=== PATIENT | female | born 2000 | race Caucasian/White ===

== ENCOUNTER 2018-09-04 07:00 | Inpatient (IN) | payer BC, MEDICAID ==
[2018-09-04] MEDS ORDERED: Sodium Chloride 0.9% 10 ML Syringe FLUSH PRN (07:18)
[2018-09-04] MEDS ORDERED: Nalbuphine 10 MG/1 ML Vial IVPUSH PRN (07:18)
[2018-09-04] MEDS ORDERED: Ondansetron 4 MG/2 ML SDV IVPUSH PRN (07:18)
[2018-09-04] MEDS ORDERED: Oxytocin/Lactated Ringers 10 UNIT/1,000 ML BAG IV SCH ×2 (07:30→15:15)
[2018-09-04] MEDS: Misoprostol 25 MCG (1/4 of 100 MCG) Tab VAG SCH ×4 (07:41→15:50)
--- NOTE | 2018-09-04 09:25 | PCM.LDHP ---
L&D History of Present Illness - General Date of Service: 09/04/18 Admit Problem/Dx: Patient Status Order with Admit Dx/Problem 09/04/18 07:18 Patient Status [ADT] Routine Admission Diagnosis/Problem Admission Diagnosis/Problem Source of Information: Patient History Limitations: Reports: No Limitations - History of Present Illness Introduction:: Patient is a 18 y/o at 40 4/7 wks who presents for IOL. Doing well today. No significant contractions. Good FM. No other concerns - Related Data Allergies/Adverse Reactions: Allergies Allergy/AdvReac Type Severity Reaction Status Date / Time No Known Allergies Allergy Verified 09/04/18 07:18 Home Medications: Home Meds Vit/FA/Fe Fumarate/Se [ MTR] 1 tab PO DAILY 01/12/18 [History] Past Medical History HEENT History: Reports: Impaired Vision Gastrointestinal History: Reports: GERD WEDGER History: Reports: : 1 Para: 0 Musculoskeletal History: Reports: Back Pain, Chronic Neurological History: Reports: Headaches, Chronic Psychiatric History: Reports: Anxiety, Depression - Past Surgical History GI Surgical History: Reports: Appendectomy Social & Family History - Family History Family Medical History: Noncontributory - Tobacco Use Smoking Status *Q: Never Smoker - Caffeine Use Caffeine Use: Reports: None - Alcohol Use Alcohol Use History: No - Recreational Drug Use Recreational Drug Use: No H&P Review of Systems - Review of Systems: Review Of Systems: See Below General: Reports: No Symptoms Pulmonary: Reports: No Symptoms Cardiovascular: Reports: No Symptoms Gastrointestinal: Reports: No Symptoms Genitourinary: Reports: No Symptoms Musculoskeletal: Reports: No Symptoms Psychiatric: Reports: No Symptoms Neurological: Reports: No Symptoms L&D Exam - Exam Exam: See Below - Vital Signs Vital Signs: Last Vital Signs Temp 37.4 C 09/04/18 07:16 Pulse 91 09/04/18 07:16 Resp 14 09/04/18 07:16 BP 125/79 09/04/18 07:16 Pulse Ox 96 09/04/18 07:16 Weight: 93.304 kg - OB Specific Contraction Intensity: Irritability Movement: Active Heart Tones: Present Heart Tones per Min: 130 Heart Rate (FHR) Variability: Moderate (6-25 bmp) Presentation: Vertex - Britton Score Britton Score Cervix Position: Midposition Britton Score Consistency: Soft Britton Score Effacement: 51-70% Britton Score Dilation: 1-2 cm Britton Score 's Station: -2 Britton Score Total: 7 - Exam General: Alert, Oriented, Cooperative Lungs: Clear to Auscultation, Normal Respiratory Effort Cardiovascular: Regular Rate, Regular Rhythm GI/Abdominal Exam: Soft, Non-Tender Genitourinary: Normal external exam Extremities: Normal Inspection Skin: Warm, Dry, Intact - Patient Data Lab Results Last 24 hrs: Laboratory Results - last 24 hr 09/04/18 Range/Units 07:34 WBC 8.68 (3.98-10.04) K/mm3 RBC 4.33 (3.98-5.22) M/mm3 Hgb 11.3 D (11.2-15.7) gm/L Hct 35.2 (34.1-44.9) % MCV 81.3 D (79.4-94.8) fl MCH 26.1 (25.6-32.2) pg MCHC 32.1 L (32.2-35.5) g/dl RDW Std Deviation 45.2 (36.4-46.3) fL Plt Count 223 (182-369) K/mm3 MPV 11.7 (9.4-12.3) fl Neut % (Auto) 71.4 H (34.0-71.1) % Lymph % (Auto) 20.0 (19.3-51.7) % Kane % (Auto) 7.0 (4.7-12.5) % Eos % (Auto) 1.4 (0.7-5.8) Baso % (Auto) 0.1 (0.1-1.2) % Neut # (Auto) 6.19 H (1.56-6.13) K/mm3 Lymph # (Auto) 1.74 (1.18-3.74) K/mm3 [place] # (Auto) 0.61 H (0.24-0.36) K/mm3 Eos # (Auto) 0.12 (0.04-0.36) K/mm3 Baso # (Auto) 0.01 (0.01-0.08) K/mm3 Result Diagrams: 09/04/18 07:34 - Problem List (1) Post-term , 40-42 weeks of gestation SNOMED Code(s): 95259907466230 ICD Code: O48.0 - POST-TERM Status: Acute Current Visit: Yes (2) Rubella non-immune status, antepartum SNOMED Code(s): 412613488 ICD Code: O99.89 - OTH DISEASES AND CONDITIONS COMPL PREG/CHLDBRTH; Z28.3 - UNDERIMMUNIZATION STATUS Status: Acute Current Visit: Yes Problem List Initiated/Reviewed/Updated: Yes Orders Last 24hrs: Active Orders 24 hr Category Date Time Status Patient Status [ADT] Routine ADT 09/04/18 07:18 Active Activity as Tolerated [RC] PFP Care 09/04/18 07:18 Active Communication Order [RC] ASDIRECTED Care 09/04/18 07:18 Active Heart Tones [RC] ASDIRECTED Care 09/04/18 07:18 Active Non Stress Test [RC] PER UNIT ROUTINE Care 09/04/18 07:18 Active Notify Provider [RC] PFP Care 09/04/18 07:18 Active Notify Provider [RC] PRN Care 09/04/18 07:18 Active Peripheral IV Care [RC] . DIRECTED Care 09/04/18 07:18 Active Vital Signs [RC] PER UNIT ROUTINE Care 09/04/18 07:18 Active Regular Diet [DIET] Diet 09/04/18 Breakfast Active RAPID PLASMA REAGIN,RPR [CHEM] Routine Lab 09/04/18 07:34 Received Lactated Ringers [Ringers, Lactated] 1,000 ml Med 09/04/18 07:30 Active IV ASDIRECTED Nalbuphine [Nubain] Med 09/04/18 07:18 Active 10 mg IVPUSH Q2H PRN Ondansetron [Zofran] Med 09/04/18 07:18 Active 4 mg IVPUSH Q4H PRN Oxytocin/Lactated Ringers [Pitocin in LR 10 Units/1,000 Med 09/04/18 07:30 Active ML] 10 unit in 1,000 ml IV .CONTINUOUS Sodium Chloride 0.9% [Saline Flush] Med 09/04/18 07:18 Active 10 ml FLUSH ASDIRECTED PRN miSOPROStol [Cytotec] Med 09/04/18 08:00 Active 25 mcg VAG Q4HR Electronic Heart Tones Ext w TOCO [WOMSER] Oth 06/28/19 07:18 Ordered Routine Electronic Heart Tones Internal [WOMSER] Per Unit Oth 09/04/18 07:18 Ordered Routine Peripheral IV Insertion Adult [OM.PC] Routine Oth 09/04/18 07:18 Ordered Resuscitation Status Routine Resus Stat 09/04/18 07:18 Ordered Medication Orders Lactated Ringer's (Ringers, Lactated) 1,000 mls @ 100 mls/hr IV ASDIRECTED RAMIRO Oxytocin/Lactated Ringer's (Pitocin In Lr 10 Units/1,000 Ml) 10 unit in 1,000 mls @ 500 mls/hr IV .CONTINUOUS RAMIRO Misoprostol (Cytotec) 25 mcg VAG Q4HR RAMIRO Stop: 09/04/18 17:01 Last Admin: 09/04/18 09:05 Dose: Not Given Admin: 09/04/18 07:41 Dose: 25 mcg Nalbuphine HCl (Nubain) 10 mg IVPUSH Q2H PRN PRN Reason: Pain Ondansetron HCl (Zofran) 4 mg IVPUSH Q4H PRN PRN Reason: Nausea/Vomiting Sodium Chloride (Saline Flush) 10 ml FLUSH ASDIRECTED PRN PRN Reason: Keep Vein Open Assessment/Plan Comment:: 18 y/o at 40 4/7 wks presents for IOL * Labs on admission * Cytotec and mcwilliams bulb for IOL * Pain management per patient preference * Anticipate * MMR prior to discharge
[2018-09-04] MEDS ORDERED: Bupivacaine/fentaNYL/NS 100 ML Bag EPIDUR PRN (12:33)
[2018-09-04] MEDS ORDERED: ePHEDrine 50 MG/ML SDV IVPUSH PRN (12:33)
[2018-09-04] MEDS ORDERED: diphenhydrAMINE 50 MG/ML SDV IVPUSH PRN (12:33)
[2018-09-04] MEDS ORDERED: fentaNYL 100 MCG/2 ML SDV EPIDUR PRN (12:33)
--- NOTE | 2018-09-04 12:33 | PCM.PREANE ---
Preanesthetic Assessment - Procedure Proposed Procedure: phil - Anesthesia/Transfusion/Family Hx Anesthesia History: Prior Anesthesia Without Reaction Family History of Anesthesia Reaction: No Transfusion History: No Prior Transfusion(s) - Review of Systems General: No Symptoms Pulmonary: No Symptoms Cardiovascular: No Symptoms Gastrointestinal: No Symptoms Neurological: No Symptoms Other: Reports: None - Physical Assessment O2 Sat by Pulse Oximetry: 96 Respiratory Rate: 14 Vital Signs: Last Vital Signs Temp 99.4 F 09/04/18 07:16 Pulse 91 09/04/18 07:16 Resp 14 09/04/18 07:16 BP 125/79 09/04/18 07:16 Pulse Ox 96 09/04/18 07:16 Height: 5 ft 5 in Weight: 93.304 kg ASA Class: 2 Mental Status: Alert & Oriented x3 Airway Class: Mallampati = 1 Dentition: Reports: Normal Dentition Thyro-Mental Finger Breadths: 3 Mouth Opening Finger Breadths: 3 ROM/Head Extension: Full Lungs: Clear to Auscultation, Normal Respiratory Effort Cardiovascular: Regular Rate, Regular Rhythm - Lab Values: Laboratory Last Values WBC 8.68 K/mm3 (3.98-10.04) 09/04/18 07:34 RBC 4.33 M/mm3 (3.98-5.22) 09/04/18 07:34 Hgb 11.3 gm/L (11.2-15.7) D 09/04/18 07:34 Hct 35.2 % (34.1-44.9) 09/04/18 07:34 MCV 81.3 fl (79.4-94.8) D 09/04/18 07:34 MCH 26.1 pg (25.6-32.2) 09/04/18 07:34 MCHC 32.1 g/dl (32.2-35.5) L 09/04/18 07:34 RDW Std Deviation 45.2 fL (36.4-46.3) 09/04/18 07:34 Plt Count 223 K/mm3 (182-369) 09/04/18 07:34 MPV 11.7 fl (9.4-12.3) 09/04/18 07:34 Neut % (Auto) 71.4 % (34.0-71.1) H 09/04/18 07:34 Lymph % (Auto) 20.0 % (19.3-51.7) 09/04/18 07:34 [place] % (Auto) 7.0 % (4.7-12.5) 09/04/18 07:34 Eos % (Auto) 1.4 (0.7-5.8) 09/04/18 07:34 Baso % (Auto) 0.1 % (0.1-1.2) 09/04/18 07:34 Neut # (Auto) 6.19 K/mm3 (1.56-6.13) H 09/04/18 07:34 Lymph # (Auto) 1.74 K/mm3 (1.18-3.74) 09/04/18 07:34 [place] # (Auto) 0.61 K/mm3 (0.24-0.36) H 09/04/18 07:34 Eos # (Auto) 0.12 K/mm3 (0.04-0.36) 09/04/18 07:34 Baso # (Auto) 0.01 K/mm3 (0.01-0.08) 09/04/18 07:34 RPR Non-reactive (NONREACTIVE) 09/04/18 07:34 - Allergies Allergies/Adverse Reactions: Allergies Allergy/AdvReac Type Severity Reaction Status Date / Time No Known Allergies Allergy Verified 09/04/18 07:18 - Blood Blood Available: No - Acknowledgements Anesthesia Type Planned: Epidural Pt an Appropriate Candidate for the Planned Anesthesia: Yes Alternatives and Risks of Anesthesia Discussed w Pt/Guardian: Yes Pt/Guardian Understands and Agrees with Anesthesia Plan: Yes PreAnesthesia Questionnaire HEENT History: Reports: Impaired Vision Other HEENT History: wears glasses Cardiovascular History: Reports: Heart Murmur Respiratory History: Reports: None Gastrointestinal History: Reports: GERD [employer]IMARY [employer] TE[employer]ER History: Reports: : 1 (40 weeks 4) Para: 0 - Past Surgical History GI Surgical History: Reports: Appendectomy - SUBSTANCE USE Smoking Status *Q: Never Smoker Tobacco Use Within Last Twelve Months: No Second Hand Smoke Exposure: No Days Per Week of Alcohol Use: 0 Recreational Drug Use History: No - HOME MEDS Home Medications: Home Meds Vit/FA/Fe Fumarate/Se [ MTR] 1 tab PO DAILY 01/12/18 [History] - CURRENT (IN HOUSE) MEDS Current Meds: Current Medications Lactated Ringer's (Ringers, Lactated) 1,000 mls @ 100 mls/hr IV ASDIRECTED RAMIRO Oxytocin/Lactated Ringer's (Pitocin In Lr 10 Units/1,000 Ml) 10 unit in 1,000 mls @ 500 mls/hr IV .CONTINUOUS [facility] Misoprostol (Cytotec) 25 mcg VAG Q4HR RAMIRO Stop: 09/04/18 17:01 Last Admin: 09/04/18 11:49 Dose: 25 mcg Nalbuphine HCl (Nubain) 10 mg IVPUSH Q2H PRN PRN Reason: Pain Ondansetron HCl (Zofran) 4 mg IVPUSH Q4H PRN PRN Reason: Nausea/Vomiting Sodium Chloride (Saline Flush) 10 ml FLUSH ASDIRECTED PRN PRN Reason: Keep Vein Open
--- NOTE | 2018-09-04 15:14 | PCM.PNLD ---
Labor Progress Note - VS & Meds Vital Signs: Last Vital Signs Temp 37.4 C 09/04/18 07:16 Pulse 91 09/04/18 07:16 Resp 14 09/04/18 12:33 BP 125/79 09/04/18 07:16 Pulse Ox 96 09/04/18 12:33 Active Medications: Current Medications Diphenhydramine HCl (Benadryl) 25 mg IVPUSH Q6H PRN PRN Reason: pruritis Ephedrine Sulfate (Ephedrine Sulfate) 5 mg IVPUSH ASDIRECTED PRN PRN Reason: Hypotension Fentanyl (Sublimaze) 100 mcg EPIDUR Q3H PRN PRN Reason: Pain Fentanyl/Bupivacaine HCl (Fentanyl/Bupivacaine/Ns 2 Mcg-0.125% 100 Ml) 100 ml EPIDUR ASDIRECTED PRN PRN Reason: Pain Lactated Ringer's (Ringers, Lactated) 1,000 mls @ 100 mls/hr IV ASDIRECTED RAMIRO Oxytocin/Lactated Ringer's (Pitocin In Lr 10 Units/1,000 Ml) 10 unit in 1,000 mls @ 500 mls/hr IV .CONTINUOUS RAMIRO Oxytocin/Lactated Ringer's (Pitocin In Lr 10 Units/1,000 Ml) 10 unit in 1,000 mls @ 12 mls/hr IV TITRATE RAMIRO; Protocol Nalbuphine HCl (Nubain) 10 mg IVPUSH Q2H PRN PRN Reason: Pain Ondansetron HCl (Zofran) 4 mg IVPUSH Q4H PRN PRN Reason: Nausea/Vomiting Sodium Chloride (Saline Flush) 10 ml FLUSH ASDIRECTED PRN PRN Reason: Keep Vein Open Discontinued Medications Misoprostol (Cytotec) 25 mcg VAG Q4HR RAMIRO Stop: 09/04/18 17:01 Last Admin: 09/04/18 11:49 Dose: 25 mcg - Uterine Contractions Uterine Monitoring Mode: External [place] Contraction Intensity: Mild Uterine Resting Tone: Soft - Monitoring Monitor Mode: External Ultrasound Heart Rate (FHR) Baseline: 135 Heart Rate (FHR) Variability: Moderate (6-25 bmp) Accelerations: Present, 15x15 Decelerations: None Strip Review: Category I - Vaginal Exam Dilation (cm): 3 Effacement (Percent): 50 Station: -2 Cervical Position: Midposition - Labor Progress (Free Text) Labor Progress: Doing well. Salguero bulb out. Will start pitocin
[2018-09-04] MEDS: Lactated Ringers 1,000 ML IV SCH ×3 (15:48→22:31)
--- NOTE | 2018-09-04 20:22 | PCM.PNLD ---
Labor Progress Note - VS & Meds Vital Signs: Last Vital Signs Temp 37.4 C 09/04/18 07:16 Pulse 91 09/04/18 07:16 Resp 14 09/04/18 12:33 BP 125/79 09/04/18 07:16 Pulse Ox 96 09/04/18 12:33 Active Medications: Current Medications Diphenhydramine HCl (Benadryl) 25 mg IVPUSH Q6H PRN PRN Reason: pruritis Ephedrine Sulfate (Ephedrine Sulfate) 5 mg IVPUSH ASDIRECTED PRN PRN Reason: Hypotension Fentanyl (Sublimaze) 100 mcg EPIDUR Q3H PRN PRN Reason: Pain Fentanyl/Bupivacaine HCl (Fentanyl/Bupivacaine/Ns 2 Mcg-0.125% 100 Ml) 100 ml EPIDUR ASDIRECTED PRN PRN Reason: Pain Lactated Ringer's (Ringers, Lactated) 1,000 mls @ 100 mls/hr IV ASDIRECTED RAMIRO Last Admin: 09/04/18 15:48 Dose: 100 mls/hr Oxytocin/Lactated Ringer's (Pitocin In Lr 10 Units/1,000 Ml) 10 unit in 1,000 mls @ 500 mls/hr IV .CONTINUOUS RAMIRO Oxytocin/Lactated Ringer's (Pitocin In Lr 10 Units/1,000 Ml) 10 unit in 1,000 mls @ 12 mls/hr IV TITRATE RAMIRO; Protocol Last Titration: 09/04/18 17:32 Dose: 6 munits/min, 36 mls/hr Nalbuphine HCl (Nubain) 10 mg IVPUSH Q2H PRN PRN Reason: Pain Ondansetron HCl (Zofran) 4 mg IVPUSH Q4H PRN PRN Reason: Nausea/Vomiting Sodium Chloride (Saline Flush) 10 ml FLUSH ASDIRECTED PRN PRN Reason: Keep Vein Open Discontinued Medications Misoprostol (Cytotec) 25 mcg VAG Q4HR RAMIRO Stop: 09/04/18 17:01 Last Admin: 09/04/18 15:50 Dose: Not Given - Uterine Contractions Uterine Monitoring Mode: External [place] Contraction Intensity: Mild Uterine Resting Tone: Soft - Monitoring Monitor Mode: External Ultrasound Heart Rate (FHR) Baseline: 140 Heart Rate (FHR) Variability: Moderate (6-25 bmp) Accelerations: Present, 15x15 Decelerations: None Strip Review: Category I - Vaginal Exam Dilation (cm): 3 Effacement (Percent): 50 Station: -2 Cervical Position: Midposition - Labor Progress (Free Text) Labor Progress: Cervix similar to when first started pitocin 4 hours ago. Only on 6. AROM performed with release of scant amount of clear fluid. Continue present management
[2018-09-04] MEDS ORDERED: Calcium Carbonate 500 MG Tab.Chew PO PRN (21:37)
--- NOTE | 2018-09-04 22:52 | PCM.POSTAN ---
POST ANESTHESIA ASSESSMENT - MENTAL STATUS Mental Status: Alert - RESPIRATORY Respiratory Status: Respiratory Rate WNL, Airway Patent - CARDIOVASCULAR CV Status: Pulse Rate WNL, Blood Pressure Stable - GASTROINTESTINAL GI Status: No Symptoms - POST OP HYDRATION Hydration Status: Adequate & Stable
[2018-09-05] MEDS: Lactated Ringers 1,000 ML IV SCH (04:16)
--- NOTE | 2018-09-05 07:19 | PCM.DEL ---
L & D Note - General Info Date of Service: 09/05/18 - Delivery Note Labor: Induced by ARM, Induced by Oxytocin Cervical Ripening Method: Balloon Device, Misoprostil Delivery Outcome: Livebirth Infant Delivery Method: Spontaneous Vaginal Delivery-Single Delivery Mode: Spontaneous Presentation: Left Occiput Anterior (ABDI) Nuchal Cord: None Anesthesia Type: Epidural Amniotic Fluid Description: Clear Episiotomy Type: Right Mediolateral Suture type: Vicryl Suture size: 2-0 Placenta: Intact, Spontaneous Cord: 3 Vessels Estimated Blood Loss: 200 [place]: Bulb Syringe, Stimulated, Warmed, [place] Used, Warmer Used Delivery Comments (Free Text/Narrative):: Patient found to be complete and began pushing. Patient with extreme discomfort /anxiety with pushing. Had an extended period. Did offer a small episiotomy and she did accept this. Immediately after head delivered from an TEN presentation. With gentle downward traction the shoulders did not deliver. Patient put in deeper McRobert's, but delivery still did not occur. Suprapubic pressure and McRobert's applied again and after about 30 seconds anterior shoulder did deliver. Infant placed on maternal abdomen and cord clamped and cut. Baby taken quickly to warmer for assessment. Placenta allowed time to separate and expelled intact. Inspection of the perineum showed small right mediolateral episiotomy without extension. This was repaired with a 2-0 vicryl in the typical fashion - General Info Date of Service: 09/05/18 - Patient Data Vitals - Most Recent: Last Vital Signs Temp 37.4 C 09/04/18 07:16 Pulse 91 09/04/18 07:16 Resp 14 09/04/18 12:33 BP 125/79 09/04/18 07:16 Pulse Ox 96 09/04/18 12:33 Weight - Most Recent: 93.304 kg I&O - Last 24 Hours: Intake & Output 09/04/18 09/05/18 09/05/18 22:59 06:59 14:59 Intake Total 2700 1000 Balance 2700 1000 Lab Results Last 24 Hours: Laboratory Results - last 24 hr 09/04/18 09/04/18 Range/Units 07:34 07:34 WBC 8.68 (3.98-10.04) K/mm3 RBC 4.33 (3.98-5.22) M/mm3 Hgb 11.3 D (11.2-15.7) gm/L Hct 35.2 (34.1-44.9) % MCV 81.3 D (79.4-94.8) fl MCH 26.1 (25.6-32.2) pg MCHC 32.1 L (32.2-35.5) g/dl RDW Std Deviation 45.2 (36.4-46.3) fL Plt Count 223 (182-369) K/mm3 MPV 11.7 (9.4-12.3) fl Neut % (Auto) 71.4 H (34.0-71.1) % Lymph % (Auto) 20.0 (19.3-51.7) % [place] % (Auto) 7.0 (4.7-12.5) % Eos % (Auto) 1.4 (0.7-5.8) Baso % (Auto) 0.1 (0.1-1.2) % Neut # (Auto) 6.19 H (1.56-6.13) K/mm3 Lymph # (Auto) 1.74 (1.18-3.74) K/mm3 [place] # (Auto) 0.61 H (0.24-0.36) K/mm3 Eos # (Auto) 0.12 (0.04-0.36) K/mm3 Baso # (Auto) 0.01 (0.01-0.08) K/mm3 RPR Non-reactive (NONREACTIVE) Med Orders - Current: Current Medications Calcium Carbonate/Glycine (Tums) 1,000 mg PO Q2H PRN PRN Reason: Indigestion Last Admin: 09/04/18 21:47 Dose: 1,000 mg Diphenhydramine HCl (Benadryl) 25 mg IVPUSH Q6H PRN PRN Reason: pruritis Last Admin: 09/05/18 00:16 Dose: 25 mg Ephedrine Sulfate (Ephedrine Sulfate) 5 mg IVPUSH ASDIRECTED PRN PRN Reason: Hypotension Fentanyl (Sublimaze) 100 mcg EPIDUR Q3H PRN PRN Reason: Pain Fentanyl/Bupivacaine HCl (Fentanyl/Bupivacaine/Ns 2 Mcg-0.125% 100 Ml) 100 ml EPIDUR ASDIRECTED PRN PRN Reason: Pain Last Admin: 09/05/18 04:44 Dose: 100 ml Lactated Ringer's (Ringers, Lactated) 1,000 mls @ 100 mls/hr IV ASDIRECTED RAMIRO Last Admin: 09/05/18 04:16 Dose: 100 mls/hr Oxytocin/Lactated Ringer's (Pitocin In Lr 10 Units/1,000 Ml) 10 unit in 1,000 mls @ 500 mls/hr IV .CONTINUOUS RAMIRO Oxytocin/Lactated Ringer's (Pitocin In Lr 10 Units/1,000 Ml) 10 unit in 1,000 mls @ 12 mls/hr IV TITRATE RAMIRO; Protocol Last Titration: 09/05/18 05:32 Dose: 4 munits/min, 24 mls/hr Nalbuphine HCl (Nubain) 10 mg IVPUSH Q2H PRN PRN Reason: Pain Ondansetron HCl (Zofran) 4 mg IVPUSH Q4H PRN PRN Reason: Nausea/Vomiting Sodium Chloride (Saline Flush) 10 ml FLUSH ASDIRECTED PRN PRN Reason: Keep Vein Open Discontinued Medications Misoprostol (Cytotec) 25 mcg VAG Q4HR RAMIRO Stop: 09/04/18 17:01 Last Admin: 09/04/18 15:50 Dose: Not Given - Problem List & Annotations (1) Post-term , 40-42 weeks of gestation SNOMED Code(s): 56953550301635 Code(s): O48.0 - POST-TERM Status: Acute Current Visit: Yes (2) Rubella non-immune status, antepartum SNOMED Code(s): 624960623 Code(s): O99.89 - OTH DISEASES AND CONDITIONS COMPL PREG/CHLDBRTH; Z28.3 - UNDERIMMUNIZATION STATUS Status: Acute Current Visit: Yes (3) Shoulder dystocia, delivered, current hospitalization SNOMED Code(s): 230565001, 142035662 Code(s): O66.0 - OBSTRUCTED LABOR DUE TO SHOULDER DYSTOCIA Status: Acute Current Visit: Yes - Problem List Review Problem List Initiated/Reviewed/Updated: Yes - My Orders Last 24 Hours: My Active Orders 09/04/18 07:18 Patient Status [ADT] Routine Activity as Tolerated [RC] PFP Communication Order [RC] ASDIRECTED Heart Tones [RC] ASDIRECTED Notify Provider [RC] PFP Notify Provider [RC] PRN Peripheral IV Care [RC] . DIRECTED Vital Signs [RC] 09,15,21,03 Nalbuphine [Nubain] 10 mg IVPUSH Q2H PRN Ondansetron [Zofran] 4 mg IVPUSH Q4H PRN Sodium Chloride 0.9% [Saline Flush] 10 ml FLUSH ASDIRECTED PRN Electronic Heart Tones Ext w TOCO [WOMSER] Routine Electronic Heart Tones Internal [WOMSER] Per Unit Routine Peripheral IV Insertion Adult [OM.PC] Routine Resuscitation Status Routine 09/04/18 07:30 Lactated Ringers [Ringers, Lactated] 1,000 ml IV ASDIRECTED Oxytocin/Lactated Ringers [Pitocin in LR 10 Units/1,000 ML] 10 unit in 1,000 ml IV .CONTINUOUS 09/04/18 15:15 Oxytocin/Lactated Ringers [Pitocin in LR 10 Units/1,000 ML] 10 unit in 1,000 ml IV TITRATE 09/04/18 21:37 Calcium Carbonate [Tums] 1,000 mg PO Q2H PRN 09/04/18 Breakfast Regular Diet [DIET] 09/05/18 07:09 Patient Status Manage Transfer [TRANSFER] Routine - Assessment Assessment:: 18 y/o G1 now P1001 PPD#0 from at 40 5/7 wks - Plan Plan:: * Routine cares * Encourage breast feeding * Discharge home in 1-2 days * MMR prior to discharge
--- NOTE | 2018-09-05 07:39 | PCM48HPAN ---
Post Anesthesia Note - EVALUATION WITHIN 48HRS OF ANESTHETIC Vital Signs in Normal Range: Yes Patient Participated in Evaluation: Yes Respiratory Function Stable: Yes Airway Patent: Yes Cardiovascular Function Stable: Yes Hydration Status Stable: Yes Pain Control Satisfactory: Yes Nausea and Vomiting Control Satisfactory: Yes Mental Status Recovered: Yes Resp Rate: 14
[2018-09-05] MEDS ORDERED: Acetaminophen 325 MG Tab PO PRN (09:25)
[2018-09-05] MEDS ORDERED: Benzocaine/Menthol 20%-0.5% Spray 56 GM Canister TOP PRN (09:25)
[2018-09-05] MEDS ORDERED: Lanolin 100% Cream 7 GM Tube TOP PRN (09:25)
[2018-09-05] MEDS ORDERED: Witch Hazel Medicated Pads 40/Jar TOP PRN (09:25)
[2018-09-05] MEDS ORDERED: Docusate Sodium 100 MG Cap PO PRN (09:25)
[2018-09-05] MEDS: Ibuprofen 600 MG Tab PO PRN (20:20)
[2018-09-06] MEDS ORDERED: Bupivacaine 0.25% 10 ML SDV ONE
[2018-09-06] MEDS: Ibuprofen 600 MG Tab PO PRN (08:03)
[2018-09-06] MEDS ORDERED: Measles, Mumps & Rubella Vaccine 0.5 ML SDV SUBCUT ONE (09:44)
--- NOTE | 2018-09-06 09:44 | PCM.PNPP ---
- General Info Date of Service: 09/06/18 Functional Status: Reports: Pain Controlled, Tolerating Diet, Ambulating, Urinating - Review of Systems General: Reports: No Symptoms Pulmonary: Reports: No Symptoms Cardiovascular: Reports: No Symptoms Gastrointestinal: Reports: No Symptoms Genitourinary: Reports: No Symptoms Musculoskeletal: Reports: No Symptoms - Patient Data Vital Signs - Most Recent: Last Vital Signs Temp 37.1 C 09/06/18 09:00 Pulse 87 09/06/18 09:00 Resp 16 09/06/18 09:00 BP 117/72 09/06/18 09:00 Pulse Ox 100 09/06/18 09:00 Weight - Most Recent: 93.304 kg I&O - Last 24 Hours: Intake & Output 09/05/18 09/06/18 09/06/18 22:59 06:59 14:59 Intake Total 600 Balance 600 Med Orders - Current: Current Medications Acetaminophen (Tylenol) 650 mg PO Q4H PRN PRN Reason: mild pain or fever Benzocaine/Menthol (Dermoplast Pain Relief [place]) 0 gm TOP ASDIRECTED PRN PRN Reason: Perineal Comfort Measure Last Admin: 09/05/18 09:44 Dose: 1 can Docusate Sodium (Colace) 100 mg PO BID PRN PRN Reason: Constipation Emollient Ointment (Lansinoh Hpa) 0 gm TOP ASDIRECTED PRN PRN Reason: Sore Nipples Ibuprofen (Motrin) 600 mg PO Q6H PRN PRN Reason: Mild pain or fever Last Admin: 09/06/18 08:03 Dose: 600 mg Witch Shira (Tucks) 1 pad TOP ASDIRECTED PRN PRN Reason: Perineal Comfort Measure Last Admin: 09/05/18 09:44 Dose: 1 tub Discontinued Medications Calcium Carbonate/Glycine (Tums) 1,000 mg PO Q2H PRN PRN Reason: Indigestion Last Admin: 09/04/18 21:47 Dose: 1,000 mg Diphenhydramine HCl (Benadryl) 25 mg IVPUSH Q6H PRN PRN Reason: pruritis Last Admin: 09/05/18 00:16 Dose: 25 mg Ephedrine Sulfate (Ephedrine Sulfate) 5 mg IVPUSH ASDIRECTED PRN PRN Reason: Hypotension Fentanyl (Sublimaze) 100 mcg EPIDUR Q3H PRN PRN Reason: Pain Last Admin: 09/04/18 22:12 Dose: 100 mcg Fentanyl/Bupivacaine HCl (Fentanyl/Bupivacaine/Ns 2 Mcg-0.125% 100 Ml) 100 ml EPIDUR ASDIRECTED PRN PRN Reason: Pain Last Admin: 09/05/18 04:44 Dose: 100 ml Lactated Ringer's (Ringers, Lactated) 1,000 mls @ 100 mls/hr IV ASDIRECTED RAMIRO Last Admin: 09/05/18 04:16 Dose: 100 mls/hr Oxytocin/Lactated Ringer's (Pitocin In Lr 10 Units/1,000 Ml) 10 unit in 1,000 mls @ 500 mls/hr IV .CONTINUOUS RAMIRO Oxytocin/Lactated Ringer's (Pitocin In Lr 10 Units/1,000 Ml) 10 unit in 1,000 mls @ 12 mls/hr IV TITRATE RAMIRO; Protocol Last Titration: 09/05/18 05:32 Dose: 4 munits/min, 24 mls/hr Misoprostol (Cytotec) 25 mcg VAG Q4HR RAMIRO Stop: 09/04/18 17:01 Last Admin: 09/04/18 15:50 Dose: Not Given Nalbuphine HCl (Nubain) 10 mg IVPUSH Q2H PRN PRN Reason: Pain Ondansetron HCl (Zofran) 4 mg IVPUSH Q4H PRN PRN Reason: Nausea/Vomiting Sodium Chloride (Saline Flush) 10 ml FLUSH ASDIRECTED PRN PRN Reason: Keep Vein Open - Infant Interaction Infant Disposition, : in Room with Family Interaction: Holding Infant Feeding: Breastfed Infant; Nursed Well Support Person: Significant Other - Recovery Exam Fundal Tone: Firm Fundal Level: 1 Fingerbreadths Below Umbilicus Fundal Placement: Midline Lochia Amount: Small Lochia Color: Rubra/Red Perineum Description: Edematous, Other (see below) Other Perinuem Description: epis with repair Episiotomy/Laceration: Approximated Bladder Status: Voiding Urinary Elimination: Voided - Exam General: Alert, Oriented, Cooperative GI/Abdominal Exam: Soft, Non-Tender Extremities: Normal Inspection Skin: Warm, Dry, Intact - Problem List & Annotations (1) Post-term , 40-42 weeks of gestation SNOMED Code(s): 19331407043563 Code(s): O48.0 - POST-TERM Status: Acute Current Visit: Yes (2) Rubella non-immune status, antepartum SNOMED Code(s): 828609106 Code(s): O99.89 - OTH DISEASES AND CONDITIONS COMPL PREG/CHLDBRTH; Z28.3 - UNDERIMMUNIZATION STATUS Status: Acute Current Visit: Yes (3) Shoulder dystocia, delivered, current hospitalization SNOMED Code(s): 345769269, 534032717 Code(s): O66.0 - OBSTRUCTED LABOR DUE TO SHOULDER DYSTOCIA Status: Acute Current Visit: Yes - Problem List Review Problem List Initiated/Reviewed/Updated: Yes - My Orders Last 24 Hours: My Active Orders 09/05/18 09:25 Activity as Tolerated [RC] PER UNIT ROUTINE Vital Signs [RC] 09,15,21,03 Acetaminophen [Tylenol] 650 mg PO Q4H PRN Benzocaine/Menthol [Dermoplast Pain Relief [place]] See Dose Instructions TOP ASDIRECTED PRN Docusate Sodium [Colace] 100 mg PO BID PRN Ibuprofen [Motrin] 600 mg PO Q6H PRN Lanolin [Lansinoh HPA] See Dose Instructions TOP ASDIRECTED PRN Witch Shira [Tucks] 1 pad TOP ASDIRECTED PRN Assess Lochia [WOMSER] Per Unit Routine Assess Uterine Involution [WOMSER] Per Unit Routine Breast Pump [WOMSER] Per Unit Routine Heat Therapy [OM.PC] PRN Ice Therapy [OM.PC] Per Unit Routine Perineal Care [OM.PC] Per Unit Routine Peripheral IV Discontinue [OM.PC] Routine Sitz Bath [OM.PC] Per Unit Routine 09/06/18 09:25 Heat Therapy [OM.PC] PRN 09/06/18 09:38 Ready for Discharge [RC] PER UNIT ROUTINE - Assessment Assessment:: 18 y/o G1 now P1001 PPD#1 from at 40 5/7 wks - Plan Plan:: * Routine cares * Encourage breast feeding * Discharge home today * MMR prior to discharge
--- NOTE | 2018-09-06 09:52 | PCM.DCSUM1 ---
Discharge Summary - Discharge Data Discharge Date: 09/06/18 Discharge Disposition: Home, Self-Care 01 Condition: Good - Discharge Diagnosis/Problem(s) (1) Post-term , 40-42 weeks of gestation SNOMED Code(s): 17636194516366 ICD Code: O48.0 - POST-TERM Status: Acute Current Visit: Yes (2) Rubella non-immune status, antepartum SNOMED Code(s): 555866488 ICD Code: O99.89 - OTH DISEASES AND CONDITIONS COMPL PREG/CHLDBRTH; Z28.3 - UNDERIMMUNIZATION STATUS Status: Acute Current Visit: Yes (3) Shoulder dystocia, delivered, current hospitalization SNOMED Code(s): 027620647, 152477159 ICD Code: O66.0 - OBSTRUCTED LABOR DUE TO SHOULDER DYSTOCIA Status: Acute Current Visit: Yes - Patient Summary/Data Complications: None Consults: None Recommended Follow-up Testing/Procedures: Follow up in 3 weeks for check Hospital Course: 18 y/o at 40 4/7 wks who presented for IOL. This was done with a mcwilliams bulb and cytotec. She then underwent AROM and pitocin augmentation. She progressed well to complete dilation and underwent an uncomplicated . See delivery note for full details. she did well and was discharged home on PPD#1 - Patient Instructions Diet: Regular Diet as Tolerated Activity: As Tolerated Activity, Other: Pelvic rest for 6 weeks Driving: May Drive Today Showering/Bathing: May Shower Showering/Bathing, Other: May Bathe Notify Provider of: Fever, Increased Pain, Swelling and Redness, Drainage, Nausea and/or Vomiting - Discharge Plan *PRESCRIPTION DRUG MONITORING PROGRAM REVIEWED*: Not Applicable *COPY OF PRESCRIPTION DRUG MONITORING REPORT IN PATIENT [place]: Not Applicable Home Medications: Home Meds Vit/FA/Fe Fumarate/Se [ MTR] 1 tab PO DAILY 01/12/18 [History] Docusate Sodium [Colace] 100 mg PO BID PRN cap 09/06/18 [Rx] Ibuprofen [Motrin] 600 mg PO Q6H PRN tablet 09/06/18 [Rx] Referrals: Gracie Park MD [Primary Care Provider] - (3 weeks for check ) - Discharge Summary/Plan Comment DC Time >30 min.: No - Patient Data Vitals - Most Recent: Last Vital Signs Temp 37.1 C 09/06/18 09:00 Pulse 87 09/06/18 09:00 Resp 16 09/06/18 09:00 BP 117/72 09/06/18 09:00 Pulse Ox 100 09/06/18 09:00 Weight - Most Recent: 93.304 kg I&O - Last 24 hours: Intake & Output 09/05/18 09/06/18 09/06/18 22:59 06:59 14:59 Intake Total 600 Balance 600 Med Orders - Current: Current Medications Acetaminophen (Tylenol) 650 mg PO Q4H PRN PRN Reason: mild pain or fever Benzocaine/Menthol (Dermoplast Pain Relief [place]) 0 gm TOP ASDIRECTED PRN PRN Reason: Perineal Comfort Measure Last Admin: 09/05/18 09:44 Dose: 1 can Docusate Sodium (Colace) 100 mg PO BID PRN PRN Reason: Constipation Emollient Ointment (Lansinoh Hpa) 0 gm TOP ASDIRECTED PRN PRN Reason: Sore Nipples Ibuprofen (Motrin) 600 mg PO Q6H PRN PRN Reason: Mild pain or fever Last Admin: 09/06/18 08:03 Dose: 600 mg Witch Shira (Tucks) 1 pad TOP ASDIRECTED PRN PRN Reason: Perineal Comfort Measure Last Admin: 09/05/18 09:44 Dose: 1 tub Discontinued Medications Calcium Carbonate/Glycine (Tums) 1,000 mg PO Q2H PRN PRN Reason: Indigestion Last Admin: 09/04/18 21:47 Dose: 1,000 mg Diphenhydramine HCl (Benadryl) 25 mg IVPUSH Q6H PRN PRN Reason: pruritis Last Admin: 09/05/18 00:16 Dose: 25 mg Ephedrine Sulfate (Ephedrine Sulfate) 5 mg IVPUSH ASDIRECTED PRN PRN Reason: Hypotension Fentanyl (Sublimaze) 100 mcg EPIDUR Q3H PRN PRN Reason: Pain Last Admin: 09/04/18 22:12 Dose: 100 mcg Fentanyl/Bupivacaine HCl (Fentanyl/Bupivacaine/Ns 2 Mcg-0.125% 100 Ml) 100 ml EPIDUR ASDIRECTED PRN PRN Reason: Pain Last Admin: 09/05/18 04:44 Dose: 100 ml Lactated Ringer's (Ringers, Lactated) 1,000 mls @ 100 mls/hr IV ASDIRECTED [facility] Last Admin: 09/05/18 04:16 Dose: 100 mls/hr Oxytocin/Lactated Ringer's (Pitocin In Lr 10 Units/1,000 Ml) 10 unit in 1,000 mls @ 500 mls/hr IV .CONTINUOUS RAMIRO Oxytocin/Lactated Ringer's (Pitocin In Lr 10 Units/1,000 Ml) 10 unit in 1,000 mls @ 12 mls/hr IV TITRATE RAMIRO; Protocol Last Titration: 09/05/18 05:32 Dose: 4 munits/min, 24 mls/hr Misoprostol (Cytotec) 25 mcg VAG Q4HR [facility] Stop: 09/04/18 17:01 Last Admin: 09/04/18 15:50 Dose: Not Given Nalbuphine HCl (Nubain) 10 mg IVPUSH Q2H PRN PRN Reason: Pain Ondansetron HCl (Zofran) 4 mg IVPUSH Q4H PRN PRN Reason: Nausea/Vomiting Sodium Chloride (Saline Flush) 10 ml FLUSH ASDIRECTED PRN PRN Reason: Keep Vein Open
--- NOTE | 2018-09-06 12:17 | PCM48HPAN ---
Post Anesthesia Note - EVALUATION WITHIN 48HRS OF ANESTHETIC Vital Signs in Normal Range: Yes Patient Participated in Evaluation: Yes Respiratory Function Stable: Yes Airway Patent: Yes Cardiovascular Function Stable: Yes Hydration Status Stable: Yes Pain Control Satisfactory: Yes Nausea and Vomiting Control Satisfactory: Yes Mental Status Recovered: Yes Pulse Rate: 95 Resp Rate: 16 Temperature: 37.4 C Blood Pressure: 115/71
== END 2018-09-06 13:23 | disposition home or self-care (01) | DRG 560 ==
LOC: JD.OB 07:00 → JD.OBCHECK 07:00 → JD.OB 07:01 → JD.OBCHECK 07:01 → JD.OB 07:01 → JD.OBCHECK 07:18 → JD.OB 07:18 → UNDOADMOB 07:18 → OBSVTOIN 09-05 06:44 → JD.OB 09-05 06:45
PROVIDERS: ADMIT Obstetrics & Gynecology; ATTEND Obstetrics & Gynecology
PROC: 10E0XZZ Delivery of Products of Conception, External Approach (ICD-10-PCS; principal; 2018-09-05)
PROC: 10907ZC Drainage of Amniotic Fluid, Therapeutic from Products of Conception, Via Natural or Artificial Opening (ICD-10-PCS; 2018-09-05)
PROC: 3E033VJ Introduction of Other Hormone into Peripheral Vein, Percutaneous Approach (ICD-10-PCS; 2018-09-05)
PROC: 0W8NXZZ Division of Female Perineum, External Approach (ICD-10-PCS; 2018-09-05)
PROC: 4A1HXCZ Monitoring of Products of Conception, Cardiac Rate, External Approach (ICD-10-PCS; 2018-09-05)
DX: O48.0 Post-term pregnancy (principal); O66.0 Obstructed labor due to shoulder dystocia; Z3A.40 40 weeks gestation of pregnancy; Z37.0 Single live birth; Z23 Encounter for immunization
CPT/HCPCS: 01967; 36415; 51702; 59025; 59409; 85025; 86592; 90471; 90707; A9270-GY; G0010; J1200; J2590; J3010; J3490; J7120

== ENCOUNTER 2019-10-16 15:20 | Emergency (ER) | payer BC, MEDICAID ==
--- NOTE | 2019-10-16 16:38 | EDM.PDOC ---
ED HPI GENERAL MEDICAL PROBLEM - General Chief Complaint: Abdominal Pain Stated Complaint: NAUSEA AND LOW ABD PAIN Time Seen by Provider: 10/16/19 16:30 Source of Information: Reports: Patient - History of Present Illness INITIAL COMMENTS - FREE TEXT/NARRATIVE: 19-year-old female presents the emergency room after developing episodes of nausea and lower abdominal discomfort. The patient has done this several times in the past where when she gets in closed spaces that are warm she develop symptoms such as this. Today she was in a warm car with the windows rolled up for about 30 minutes and developed episodes like this. Since being in in the air conditioned emergency room she is doing much better and her symptoms have spontaneously resolved. At the time of my initial interview she request to go home. The patient denies any palpitations with these episodes and has not had any breathing difficulties or shortness of breath no chest discomfort. 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: Musculoskeletal History: Reports: Back Pain, Chronic Neurological History: Reports: Headaches, Chronic Psychiatric History: Reports: Anxiety, Depression - Past Surgical History GI Surgical History: Reports: Appendectomy Social & Family History - Family History Family Medical History: Noncontributory - Tobacco Use Smoking Status *Q: Never Smoker - Caffeine Use Caffeine Use: Reports: None - Recreational Drug Use Recreational Drug Use: No ED ROS GENERAL - Review of Systems Review Of Systems: See Below Constitutional: Reports: No Symptoms Respiratory: Reports: No Symptoms Cardiovascular: Reports: No Symptoms Endocrine: Reports: No Symptoms GI/Abdominal: Reports: Abdominal Pain, Nausea : Reports: No Symptoms Musculoskeletal: Reports: No Symptoms Neurological: Reports: No Symptoms ED EXAM, GI/ABD - Physical Exam Exam: See Below Exam Limited By: No Limitations General Appearance: Alert, No Apparent Distress Head: Atraumatic, Normocephalic Neck: Normal Inspection, Supple, Non-Tender, Full Range of Motion Respiratory/Chest: No Respiratory Distress, Lungs Clear, Normal Breath Sounds Cardiovascular: Regular Rate, Rhythm, No Edema, Systolic Murmur (2/6 soft holosystolic murmur heard best along the left lower sternal border this is not new.). No: No Murmur GI/Abdominal Exam: Normal Bowel Sounds, Soft, Non-Tender Neurological: Alert, Oriented, Normal Cognition Course - Vital Signs Last Recorded V/S: Last Vital Signs Temp 36.9 C 10/16/19 15:39 Pulse 92 10/16/19 15:39 Resp 16 10/16/19 15:39 BP 102/79 10/16/19 15:39 Pulse Ox 97 10/16/19 15:39 - Re-Assessments/Exams Free Text/Narrative Re-Assessment/Exam: 10/16/19 16:38 Patient is doing much better now and request to go home. She has a history of having these episodes when she is in close confined spaces when it is warm. I have offered to give IV fluids and double check her labs but she would like to go home. Departure - Departure Time of Disposition: 16:39 Disposition: Home, Self-Care 01 Clinical Impression: Nausea alone - Discharge Information Instructions: Nausea, Adult, [id number] Referrals: PCP,None [Primary Care Provider] - Forms: ED Department Discharge Additional Instructions: Return to the emergency room with any questions problems or worsening symptoms. With episodes like this perhaps try Gatorade. And I do recommend that today you really push the oral fluids. Sepsis Event Note (ED) - Evaluation Sepsis Screening Result: No Definite Risk - Focused Exam Vital Signs: Vital Signs Temp Pulse Resp BP Pulse Ox 10/16/19 15:39 36.9 C 92 16 102/79 97
== END 2019-10-16 16:47 | disposition home or self-care (01) ==
LOC: JD.ED 15:20
DX: R11.0 Nausea (principal); Z90.49 Acquired absence of other specified parts of digestive tract
CPT/HCPCS: 99282; 99283

== ENCOUNTER 2019-12-04 13:41 | Emergency (ER) | payer BC, MEDICAID ==
--- NOTE | 2019-12-04 14:22 | EDM.PDOC ---
ED HPI GENERAL MEDICAL PROBLEM - General Chief Complaint: Abdominal Pain Stated Complaint: PELVIC PAIN Time Seen by Provider: 12/04/19 14:01 Source of Information: Reports: Patient, RN Notes Reviewed History Limitations: Reports: No Limitations - History of Present Illness INITIAL COMMENTS - FREE TEXT/NARRATIVE: Patient is a 19-year-old female who presents to the ED for the evaluation of her pelvic pain. Patient notes for the past few days, she has been having some pelvic/uterus pain. She is noting some heavy white discharge that is nonodorous, with a pink tinge to it. She has not had issues like this in the past. She does states she has an IUD in place, she has been having unprotected sex, but was tested for STDs last month and everything was negative. She states that her last menstrual period was roughly 3-1/2 weeks ago. She was to get light vaginal bleeding, and does not really pay attention to the timing of her menses due to her IUD. the pain seems to kind of come and go, she was Motrin, yesterday, and states it did not seem to help much, so she is quit taking the Motrin. She has some nausea but no vomiting. Patient does not think she could be , but again she has been having unprotected sex, so she does not rule out that possibility completely. She denies any dysuria, frequency or urgency, but states she does have some mild pelvic pressure at times. She does not feel dizzy or lightheaded, she is not had any fevers or chills, cough or shortness of breath or any other sick-like symptoms. She states she did have a bowel movement today which was normal for her. Patient notes she has had a prior appendectomy. 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 LIAISON History: Reports: Musculoskeletal History: Reports: Back Pain, Chronic Neurological History: Reports: Headaches, Chronic Psychiatric History: Reports: Anxiety, Depression - Past Surgical History GI Surgical History: Reports: Appendectomy Social & Family History - Family History Family Medical History: Noncontributory - Tobacco Use Smoking Status *Q: Current Every Day Smoker Years of Tobacco use: 1 Packs/Tins Daily: 0.5 - Caffeine Use Caffeine Use: Reports: Coffee, Energy Drinks, Soda, Tea - Recreational Drug Use Recreational Drug Use: No ED ROS GENERAL - Review of Systems Review Of Systems: Comprehensive ROS is negative, except as noted in HPI. ED EXAM, RENAL/ - Physical Exam Exam: See Below Exam Limited By: No Limitations General Appearance: Alert, WD/WN, No Apparent Distress Respiratory/Chest: No Respiratory Distress, Lungs Clear, Normal Breath Sounds, No Accessory Muscle Use, Chest Non-Tender Cardiovascular: Normal Peripheral Pulses, Regular Rate, Rhythm, No Murmur GI/Abdominal: Normal Bowel Sounds, Soft, No Distention, No Mass, Tender (suprapubic/midline uterine tenderness) Extremities: Normal Inspection, Normal Capillary Refill Neurological: Alert, Oriented, Normal Cognition, No Motor/Sensory Deficits Psychiatric: Normal Affect, Normal Mood Skin Exam: Warm, Dry, Intact, Normal Color, No Rash Course - Vital Signs Last Recorded V/S: Last Vital Signs Temp 97.4 F 12/04/19 14:01 Pulse 71 12/04/19 14:01 Resp 20 12/04/19 14:01 BP 118/76 12/04/19 14:01 Pulse Ox 98 12/04/19 14:01 - Orders/Labs/Meds Orders: Active Orders 24 hr Category Date Time Status CBC WITH AUTO DIFF [HEME] Stat Lab 12/04/19 14:14 Ordered CMP [COMPREHENSIVE METABOLIC PN,CMP] [CHEM] Stat Lab 12/04/19 14:14 Ordered CULTURE URINE [RM] Routine Lab 12/04/19 15:14 Ordered Labs: Laboratory Tests 12/04/19 12/04/19 12/04/19 Range/Units 14:30 14:30 14:52 WBC 9.18 (3.98-10.04) K/mm3 RBC 4.53 (3.98-5.22) M/mm3 Hgb 14.0 D (11.2-15.7) gm/dl Hct 41.7 (34.1-44.9) % MCV 92.1 D (79.4-94.8) fl MCH 30.9 (25.6-32.2) pg MCHC 33.6 (32.2-35.5) g/dl RDW Std Deviation 43.8 (36.4-46.3) fL Plt Count 303 D (182-369) K/mm3 MPV 9.9 (9.4-12.3) fl Neut % (Auto) 73.2 H (34.0-71.1) % Lymph % (Auto) 18.2 L (19.3-51.7) % [place] % (Auto) 6.5 (4.7-12.5) % Eos % (Auto) 1.5 (0.7-5.8) Baso % (Auto) 0.5 (0.1-1.2) % Neut # (Auto) 6.71 H (1.56-6.13) K/mm3 Lymph # (Auto) 1.67 (1.18-3.74) K/mm3 [place] # (Auto) 0.60 H (0.24-0.36) K/mm3 Eos # (Auto) 0.14 (0.04-0.36) K/mm3 Baso # (Auto) 0.05 (0.01-0.08) K/mm3 Urine Color Yellow (Yellow) Urine Appearance Clear (Clear) Urine pH 7.0 (5.0-8.0) Ur Specific [place] 1.020 (1.005-1.030) Urine Protein Negative (Negative) Urine Glucose (UA) Negative (Negative) Urine Ketones Negative (Negative) Urine Occult Blood Trace-lysed H (Negative) Urine Nitrite Negative (Negative) Urine Bilirubin Negative (Negative) Urine Urobilinogen 0.2 (0.2-1.0) Ur Leukocyte Esterase 1+ H (Negative) Urine RBC 0-5 (0-5) /hpf Urine WBC 10-20 H (0-5) /hpf Ur Squamous Epith Cells 10-20 H (0-5) /hpf Urine Bacteria Rare (FEW) /hpf Urine Mucus Not seen (FEW) /hpf Urine HCG, Qual Negative (NEGATIVE) - Re-Assessments/Exams Free Text/Narrative Re-Assessment/Exam: 12/04/19 14:21 Patient presents to the ED for evaluation of her pelvic pressure/pain. Urinalysis will be obtained, along with a wet prep vaginal swab, basic labs and a urine for evaluation. 12/04/19 15:15 Patient's urine does have 1+ leukocyte Estrace, 10-20 white blood cells per high-power field along with 10-20 epithelial cells and rare urine bacteria. I will treat this as a mild UTI, should be placed on Omnicef. The wet prep was negative for any treatable findings. I do believe the patient's vaginal discharge is physiologic, and she might be having some abdomen cramping due to being close to her time of the month again. Her urine test was negative. Patient be discharged home with general recommendations. Departure - Departure Time of Disposition: 15:15 Disposition: Home, Self-Care 01 Condition: Good Clinical Impression: UTI (urinary tract infection) Qualifiers: Urinary tract infection type: acute cystitis Hematuria presence: with hematuria Qualified Code(s): N30.01 - Acute cystitis with hematuria - Discharge Information *PRESCRIPTION DRUG MONITORING PROGRAM REVIEWED*: No *COPY OF PRESCRIPTION DRUG MONITORING REPORT IN PATIENT [place]: No Prescriptions: Cefdinir [Omnicef] 300 mg PO BID 5 Days #10 cap Instructions: Urinary Tract Infection, Adult, [id number] Referrals: PCP,None [Primary Care Provider] - Forms: ED Department Discharge Additional Instructions: You have been evaluated in the ED for your urinary symptoms. Your urinalysis was consistent with an acute urinary tract infection. Your urine was sent for culture, and you will be notified if you should need a change in your antibiotic. This may take up to 48 hours to result. You may take AZO for urinary pain relief. This is available over the counter, and can be attained at any retail store like [employer] or any pharmacy. Please be aware that this medication will make your urine turn orange. You have been given a prescription for Omnicef, 500 mg 1 tablet 2 times a day for 5 days. This has been electronically sent to [facility] [place] [facility] [place] Please increase your oral fluid intake and try to stay adequately hydrated. Please return to the ED if your symptoms change or worsen. Sepsis Event Note (ED) - Evaluation Sepsis Screening Result: No Definite Risk - Focused Exam Vital Signs: Vital Signs Temp Pulse Resp BP Pulse Ox 12/04/19 14:01 97.4 F 71 20 118/76 98 - My Orders Last 24 Hours: My Active Orders 12/04/19 14:14 CBC WITH AUTO DIFF [HEME] Stat CMP [COMPREHENSIVE METABOLIC PN,CMP] [CHEM] Stat 12/04/19 15:14 CULTURE URINE [RM] Routine - Assessment/Plan Last 24 Hours: My Active Orders 12/04/19 14:14 CBC WITH AUTO DIFF [HEME] Stat CMP [COMPREHENSIVE METABOLIC PN,CMP] [CHEM] Stat 12/04/19 15:14 CULTURE URINE [RM] Routine
== END 2019-12-04 16:38 | disposition home or self-care (01) ==
LOC: JD.ED 13:41
DX: N30.01 Acute cystitis with hematuria (principal); F17.210 Nicotine dependence, cigarettes, uncomplicated
CPT/HCPCS: 36415; 80053; 81001; 81025; 85025; 87086; 87210; 87808; 99283; 99284

== ENCOUNTER 2022-08-08 03:34 | Emergency (ER) | payer BC, MEDICAID ==
[2022-08-08 04:06] LABS: APPEARANCE,URINE CLEAR (Clear); BILIRUBIN,URINE NEGATIVE (Negative); COLOR,URINE YELLOW (Yellow); GLUCOSE,URINE NEGATIVE (Negative); KETONES,URINE NEGATIVE (Negative); LEUKOCYTE ESTERASE,URINE 1+ (Negative); NITRITE,URINE NEGATIVE (Negative); OCCULT BLOOD,URINE NEGATIVE (Negative); PH,URINE 6.5 (5.0-8.0); PROTEIN,URINE NEGATIVE (Negative); UROBILINOGEN,URINE 0.2 (0.2-1.0)
[2022-08-08 05:39] LABS: RBC,URINE 0-5 /hpf (0-5)
[2022-08-08 05:40] LABS: BACTERIA,URINE MODERATE /hpf (FEW); MUCUS,URINE NOT SEEN /hpf (FEW)
== END 2022-08-08 04:31 | disposition home or self-care (01) ==
LOC: JD.ED 03:34
DX: R10.13 Epigastric pain (principal); Z90.49 Acquired absence of other specified parts of digestive tract
CPT/HCPCS: 81001; 99283; 99284